=== PATIENT | female | born 1990 | race Two or more races ===

== ENCOUNTER 2022-06-04 09:19 | Outpatient (CLI) | payer OTHER | END 2022-06-04 09:32 | disposition home or self-care (01) | LOC: RAD 09:19 | PROVIDERS: ATTEND Obstetrics & Gynecology Maternal & Fetal Medicine | DX: N84.0 Polyp of corpus uteri (principal); M25.20 Flail joint, unspecified joint; I10 Essential (primary) hypertension ==

== ENCOUNTER 2022-07-02 06:39 | Day surgery (SDC) | payer OTHER | END 2022-07-02 15:15 | disposition home or self-care (01) | LOC: CIR.AMB 06:39 | PROVIDERS: ATTEND Obstetrics & Gynecology | DX: N93.8 Other specified abnormal uterine and vaginal bleeding (principal); N97.8 Female infertility of other origin; Z20.822 Contact with and (suspected) exposure to COVID-19; I10 Essential (primary) hypertension ==

== ENCOUNTER → 2023-01-12 | Outpatient (CLI) | payer OTHER | END | disposition home or self-care (01) | LOC: SONOGRAMA 09:43 | PROVIDERS: ATTEND Obstetrics & Gynecology Maternal & Fetal Medicine | DX: N60.19 Diffuse cystic mastopathy of unspecified breast (principal); N63.0 Unspecified lump in unspecified breast; N60.11 Diffuse cystic mastopathy of right breast ==